=== PATIENT | male | born 1935 | race Caucasian/White ===

== ENCOUNTER 2020-01-11 05:02 | Emergency (ER) | payer MEDICARE ==
[~2020-01-11] VITALS: Ht 172.7 cm; Wt 81.7 kg
[2020-01-11] MEDS ORDERED: NORVASC 2.5 MG2.5 M1 PO (05:13)
[2020-01-11] MEDS ORDERED: PLAVIX 75 MG TA75 MG PO (05:13)
[2020-01-11] MEDS ORDERED: CARVEDILOL12.5 MG PO (05:13)
[2020-01-11] MEDS ORDERED: LIPITOR40 MG PO (05:13)
[2020-01-11] MEDS ORDERED: GLIMEPIRIDE1 MG PO (05:14)
[2020-01-11] MEDS ORDERED: PROTONIX40 M2 PO (05:14)
[2020-01-11] MEDS ORDERED: ASPIR 8181 M1 PO (05:14)
[2020-01-11 05:22] LABS: ABSOLUTE BASOPHILS 0.1 thou/uL (0.0-0.2); ABSOLUTE EOSINOPHILS 0.4 thou/uL (0.0-0.7); ABSOLUTE LYMPHOCYTES 3.2 thou/uL (0.8-5.3); ABSOLUTE MONOCYTES 0.7 thou/uL (0.0-1.2); ABSOLUTE NEUTROPHILS 3.9 thou/uL (1.6-8.1); BASOPHILS 0.9 %; EOSINOPHILS 5.3 %; HEMATOCRIT 35.4 % (42.0-52.0); HEMOGLOBIN 12.4 gm/dL (14.0-18.0); LYMPHOCYTES 38.2 %; MCH 32.5 pg (26.0-34.0); MCHC 34.9 g/dL (28.0-37.0); MCV 93.1 fL (80.0-100.0); MONOCYTES 8.8 %; MPV 11.2 fl. (7.2-11.1); NUCLEATED RBCS 0 /100WBC; PLATELET COUNT* 123 thou/uL (150-400); POLYS 46.8 %; RDW-CV 12.8 % (10.5-14.5); WBC 8.3 thou/uL (4.0-11.0)
[2020-01-11 05:30] LABS: CALCIUM 8.1 mg/dL (8.5-10.1); CREATININE 1.4 mg/dL (0.6-1.3); POTASSIUM 4.3 mmol/L (3.5-5.1)
[2020-01-11 05:33] LABS: APTT 24.9 Seconds (25.0-31.3); PROTIME 10.3 Seconds (9.20-11.50)
[2020-01-11 05:41] LABS: ALBUMIN 3.9 g/dL (3.4-5.0); TOTAL BILIRUBIN 0.6 mg/dL (<0.1-1.0); TOTAL PROTEIN 7.6 g/dL (6.4-8.2)
[2020-01-11 08:23] VITALS: BP 118/42
--- NOTE | 2020-01-12 14:44 | EKG ---
[place] [address] ELECTROCARDIOGRAM REPORT Name: RANDELL BOYLE Room: [facility]#: [id number] Admission: 01/11/20 Attend Phys: Discharge: 01/11/20 Date of : 35 Date of Service: 01/11/20 0504 Report #: [id number] THIS REPORT FOR: //name// [facility] ED Test Date: 2020-01-11 Test Time: 05:04:17 Pat Name: RANDELL BOYLE Department: Room: Gender: Liturgical Music Director: [facility] : 1935 Requested By: Jenny Tinsley Order Number: [id number] MD: Pernell Latham Measurements Intervals [place] Rate: 76 P: 0 NC: 271 QRS: -4 QRSD: 100 T: 6 QT: 405 QTc: 456 Interpretive Statements Sinus rhythm Multiple ventricular premature complexes Prolonged NC interval Minimal ST depression, anterolateral leads No previous ECG available for comparison Electronically Signed On 01-12-2020 14:42:54 CDT by Pernell Latham [email or web address] <ELECTRONICALLY SIGNED> By: Pernell Latham MD, [facility] 01/12/20 1442 0504 0504 Pernell Latham MD, [facility] /EPI
--- NOTE | 2020-01-13 10:31 | EKG ---
[place] [address] ELECTROCARDIOGRAM REPORT Name: RANDELL BOYLE Room: [facility]#: [id number] Admission: 01/11/20 Attend Phys: Discharge: 01/11/20 Date of : 35 Date of Service: 01/11/20616 Report #: [id number] THIS REPORT FOR: //name// [facility] ED Test Date: 2020-01-11 Test Time: 06:17:50 Pat Name: RANDELL BOYLE Department: Room: Gender: Net Lead Architect: : 1935 Requested By: Jenny Tinsley Order Number: [id number] Arya MD: Flash Stockton Measurements Intervals [place] Rate: 64 P: 39 NE: 366 QRS: -12 QRSD: 106 T: -18 QT: 488 QTc: 504 Interpretive Statements Second degree AV block, Mobitz II with sinus rhythm Borderline T abnormalities, inferior leads Prolonged QT interval Compared to ECG 01/11/2020 05:04:17 Second-degree AV block, Mobitz type I (Wenckebach) now present T-wave abnormality now present Ventricular premature complex(es) no longer present Electronically Signed On 01-13-2020 10:30:02 CDT by Flash Stockton [email or web address] <ELECTRONICALLY SIGNED> By: Flash Stockton MD, [facility] 01/13/20 1030 6 06 Flash Stockton MD, [facility] /EPI
== END 2020-01-11 08:24 | disposition short-term general hospital (02) ==
LOC: M.ERS 05:02
PROVIDERS: Personal Emergency Response Attendant
DX: I20.9 Angina pectoris, unspecified (principal); I20.8 Other forms of angina pectoris; I10 Essential (primary) hypertension; I25.10 Atherosclerotic heart disease of native coronary artery without angina pectoris; Z95.5 Presence of coronary angioplasty implant and graft; Z95.1 Presence of aortocoronary bypass graft; Z88.0 Allergy status to penicillin; Z88.8 Allergy status to other drugs, medicaments and biological substances